=== PATIENT | male | born 1955 | race Caucasian/White ===

== ENCOUNTER 2019-04-15 19:27 | Emergency (ER) | payer SELFPAY ==
[~2019-04-15] VITALS: Ht 177.8 cm; Wt 81.7 kg
== END 2019-04-15 19:58 | disposition left against medical advice (07) ==
LOC: ER 19:27
DX: Z53.21 Procedure and treatment not carried out due to patient leaving prior to being seen by health care provider (principal)
CPT/HCPCS: 99283

== ENCOUNTER 2020-03-28 19:22 | Emergency (ER) | payer OTHER ==
[~2020-03-28] VITALS: Ht 177.8 cm; Wt 80.3 kg
[2020-03-28 20:26] LABS: BASOPHILS ABSOLUTE AUTO 0.07 K/mm3 (0.00-0.23); BASOPHILS PERCENT AUTO 1 % (0-2); EOSINOPHILS ABSOLUTE AUTO 0.27 K/mm3 (0.00-0.68); EOSINOPHILS PERCENT AUTO 2 % (0-6); Hemoglobin 14.5 g/dL (13.5-17.5); IMMATURE GRAN ABSOLUTE AUTO 0.05 K/mm3 (0.00-0.10); IMMATURE GRAN PERCENT AUTO 0 % (0-1); LYMPHOCYTES ABSOLUTE AUTO 2.52 K/mm3 (0.84-5.20); LYMPHOCYTES PERCENT AUTO 21 % (21-46); MONOCYTES ABSOLUTE AUTO 1.09 K/mm3 (0.16-1.47); MONOCYTES PERCENT AUTO 9 % (4-13); Mean Corpuscular HGB 28.7 pg (26.0-34.0); Mean Corpuscular HGB Conc 31.5 g/dL (31.5-36.5); Mean Corpuscular Volume 91 fL (80-100); Mean Platelet Volume 10.2 fL (9.1-12.4); NEUTROPHILS ABSOLUTE AUTO 8.19 K/mm3 (1.96-9.15); NEUTROPHILS PERCENT AUTO 67 % (41-73); Platelet Count 261 K/mm3 (150-400); RDW Standard Deviation 43.7 fL (35.1-46.3); Red Blood Cell Count 5.06 M/mm3 (4.30-5.90); White Blood Cell Count 12.19 K/mm3 (4.00-11.30)
[2020-03-28 20:45] LABS: Alanine Aminotransfer (ALT/SGP 20 U/L (12-78); Albumin, Blood 3.6 g/dL (3.4-5.0); Albumin/Globulin Ratio 1.1 (0.8-1.8); Alk Phos 61 U/L (50-136); Anion Gap 2 mmol/L (6-16); Aspartate Aminotrans (AST/SGOT 18 U/L (12-37); Bilirubin, Total 0.3 mg/dL (0.1-1.0); Blood Urea Nitrogen 13 mg/dL (8-24); Bun/Creatinine Ratio 16.7 (12.0-20.0); CO2, Blood 29 mmol/L (21-32); Calcium, Blood 8.6 mg/dL (8.5-10.1); Chloride, Blood 107 mmol/L (98-108); Creatinine, Blood 0.78 mg/dL (0.60-1.20); Globulin, Blood 3.2 g/dL (2.2-4.0); Glomerular Filtration Rate >60 (60-); Glucose, Blood 109 mg/dL (70-99); Potassium, Blood 3.8 mmol/L (3.5-5.5); Sodium, Blood 138 mmol/L (136-145); Total Protein, Blood 6.8 g/dL (6.4-8.2)
== END 2020-03-28 22:33 | disposition left against medical advice (07) ==
LOC: ER 19:22
PROVIDERS: Physician Assistant
DX: R41.0 Disorientation, unspecified (principal); R42 Dizziness and giddiness; Z53.21 Procedure and treatment not carried out due to patient leaving prior to being seen by health care provider
CPT/HCPCS: 36415; 80053; 85025; 99283

== ENCOUNTER 2020-03-30 10:42 | Emergency (ER) | payer OTHER ==
[~2020-03-30] VITALS: Ht 177.8 cm; Wt 79.4 kg
[2020-03-30] MEDS ORDERED: ASPI81CH PO (11:16)
[2020-03-30] MEDS ORDERED: Norco 7.5-3251 EACH PO (12:32)
== END 2020-03-30 12:48 | disposition home or self-care (01) ==
LOC: ER 10:42
DX: S46.211A Strain of muscle, fascia and tendon of other parts of biceps, right arm, initial encounter (principal); I10 Essential (primary) hypertension; I25.2 Old myocardial infarction; F17.200 Nicotine dependence, unspecified, uncomplicated; Z95.5 Presence of coronary angioplasty implant and graft; Z88.5 Allergy status to narcotic agent; Z79.82 Long term (current) use of aspirin
CPT/HCPCS: 76882; 99285-25; A9270

== ENCOUNTER 2021-03-18 12:27 | Emergency (ER) | payer OTHER ==
[~2021-03-18] VITALS: Ht 177.8 cm; Wt 81.7 kg
[~2021-03-18 12:27] MED LIST: ALBU90OI INH; ASPI81CH PO; Norco 7.5-3251 EACH PO; PRED20 PO
[2021-03-18 13:29] LABS: BASOPHILS ABSOLUTE AUTO 0.03 K/mm3 (0.00-0.23); BASOPHILS PERCENT AUTO 0 % (0-2); EOSINOPHILS ABSOLUTE AUTO 0.03 K/mm3 (0.00-0.68); EOSINOPHILS PERCENT AUTO 0 % (0-6); Hematocrit 47.8 % (37.0-53.0); IMMATURE GRAN ABSOLUTE AUTO 0.04 K/mm3 (0.00-0.10); IMMATURE GRAN PERCENT AUTO 1 % (0-1); LYMPHOCYTES ABSOLUTE AUTO 1.49 K/mm3 (0.84-5.20); LYMPHOCYTES PERCENT AUTO 18 % (21-46); MONOCYTES ABSOLUTE AUTO 1.62 K/mm3 (0.16-1.47); MONOCYTES PERCENT AUTO 19 % (4-13); Mean Corpuscular HGB 29.1 pg (26.0-34.0); Mean Corpuscular HGB Conc 33.5 g/dL (31.5-36.5); Mean Corpuscular Volume 87 fL (80-100); Mean Platelet Volume 10.2 fL (9.1-12.4); NEUTROPHILS ABSOLUTE AUTO 5.25 K/mm3 (1.96-9.15); NEUTROPHILS PERCENT AUTO 62 % (41-73); Platelet Count 207 K/mm3 (150-400); RDW Coefficient Variation 13.5 % (11.7-14.2); RDW Standard Deviation 43.2 fL (35.1-46.3); Red Blood Cell Count 5.49 M/mm3 (4.30-5.90); White Blood Cell Count 8.46 K/mm3 (4.00-11.30)
[2021-03-18 14:10] LABS: Alanine Aminotransfer (ALT/SGP 22 U/L (12-78); Albumin, Blood 3.1 g/dL (3.4-5.0); Albumin/Globulin Ratio 0.9 (0.8-1.8); Alk Phos 47 U/L (50-136); Anion Gap 8 mmol/L (6-16); Aspartate Aminotrans (AST/SGOT 27 U/L (12-37); Bilirubin, Total 0.3 mg/dL (0.1-1.0); Blood Urea Nitrogen 25 mg/dL (8-24); Bun/Creatinine Ratio 24.5 (12.0-20.0); CO2, Blood 24 mmol/L (21-32); Calcium, Blood 8.4 mg/dL (8.5-10.1); Chloride, Blood 102 mmol/L (98-108); Creatinine, Blood 1.02 mg/dL (0.60-1.20); Globulin, Blood 3.6 g/dL (2.2-4.0); Glomerular Filtration Rate >60 (60-); Glucose, Blood 93 mg/dL (70-99); Potassium, Blood 4.2 mmol/L (3.5-5.5); Sodium, Blood 134 mmol/L (136-145); Total Protein, Blood 6.7 g/dL (6.4-8.2); Troponin I <0.015 ng/mL (0.000-0.040)
[2021-03-18 14:31] LABS: Influenza B, PCR NEGATIVE (NEGATIVE); Resp Syncytial Virus, PCR NEGATIVE (NEGATIVE); SARS-Cov-2 (COVID-19) PCR, MMC NEGATIVE (NEGATIVE)
[2021-03-18 14:46] LABS: Influenza A, PCR POSITIVE (NEGATIVE)
== END 2021-03-18 15:08 | disposition home or self-care (01) ==
LOC: ER 12:27
PROVIDERS: Emergency Medicine
DX: J10.1 Influenza due to other identified influenza virus with other respiratory manifestations (principal); I10 Essential (primary) hypertension; I25.2 Old myocardial infarction; Z87.891 Personal history of nicotine dependence; Z20.822 Contact with and (suspected) exposure to COVID-19; Z88.5 Allergy status to narcotic agent; Z79.899 Other long term (current) drug therapy; Z79.82 Long term (current) use of aspirin; Z79.52 Long term (current) use of systemic steroids
CPT/HCPCS: 0241U; 80053; 83690; 84484; 85025; 93005; 93010; 99284-25; J7030

== ENCOUNTER 2023-02-21 09:27 | Emergency (ER) | payer OTHER ==
[~2023-02-21] VITALS: Ht 175.3 cm; Wt 77.1 kg
[~2023-02-21 09:27] MED LIST changes: +CYCL10 PO; +NAPR500 PO
[2023-02-21 09:47] VITALS: BP 141/90
== END 2023-02-21 10:18 | disposition home or self-care (01) ==
LOC: ER 09:27
DX: R04.0 Epistaxis (principal); Z88.5 Allergy status to narcotic agent; Z79.82 Long term (current) use of aspirin; I10 Essential (primary) hypertension; I25.2 Old myocardial infarction; J44.9 Chronic obstructive pulmonary disease, unspecified; F17.210 Nicotine dependence, cigarettes, uncomplicated
CPT/HCPCS: 99283

== ENCOUNTER 2024-12-26 22:06 | Emergency (ER) | payer MEDICARE, OTHER ==
[~2024-12-26] VITALS: Ht 177.8 cm; Wt 74.4 kg
[2024-12-26 22:29] LABS: BASOPHILS ABSOLUTE AUTO 0.08 K/mm3 (0.00-0.23); BASOPHILS PERCENT AUTO 1 % (0-2); EOSINOPHILS ABSOLUTE AUTO 0.30 K/mm3 (0.00-0.68); EOSINOPHILS PERCENT AUTO 3 % (0-6); Hematocrit 49.2 % (37.0-53.0); Hemoglobin 16.1 g/dL (13.5-17.5); IMMATURE GRAN ABSOLUTE AUTO 0.04 K/mm3 (0.00-0.10); IMMATURE GRAN PERCENT AUTO 0 % (0-1); LYMPHOCYTES ABSOLUTE AUTO 3.01 K/mm3 (0.84-5.20); LYMPHOCYTES PERCENT AUTO 28 % (21-46); MONOCYTES ABSOLUTE AUTO 1.02 K/mm3 (0.16-1.47); MONOCYTES PERCENT AUTO 9 % (4-13); Mean Corpuscular HGB Conc 32.7 g/dL (31.5-36.5); Mean Corpuscular Volume 90 fL (80-100); NEUTROPHILS ABSOLUTE AUTO 6.46 K/mm3 (1.96-9.15); NEUTROPHILS PERCENT AUTO 59 % (41-73); NRBC ABSOLUTE 0.00 K/mm3 (0.00-0.02); NRBC Auto 0.0 /100 WBC (0.0-0.2); Platelet Count 233 K/mm3 (150-400); RDW Coefficient Variation 13.4 % (11.7-14.2); RDW Standard Deviation 44.3 fL (35.1-46.3)
[2024-12-26 22:58] LABS: Alanine Aminotransfer (ALT/SGP 22 U/L (12-78); Albumin, Blood 3.7 g/dL (3.4-5.0); Albumin/Globulin Ratio 1.0 (0.8-1.8); Anion Gap 6 mmol/L (3-11); Aspartate Aminotrans (AST/SGOT 23 U/L (12-37); Bilirubin, Total <0.1 mg/dL (0.1-1.0); Blood Urea Nitrogen 19 mg/dL (8-24); CO2, Blood 28 mmol/L (21-32); Calcium, Blood 9.1 mg/dL (8.5-10.1); Chloride, Blood 104 mmol/L (98-108); Creatinine, Blood 0.76 mg/dL (0.60-1.20); Globulin, Blood 3.6 g/dL (2.2-4.0); Glucose, Blood 96 mg/dL (70-99); Potassium, Blood 5.1 mmol/L (3.5-5.5); Sodium, Blood 133 mmol/L (136-145); Total Protein, Blood 7.3 g/dL (6.4-8.2)
[2024-12-27] MEDS ORDERED: FentaNYL Citrate 50 MCG/ML 2 ML Injection IV ONE (00:05)
[2024-12-27] MEDS ORDERED: Ipratropium/Albuterol SulF 2.5-0.5MG/3 ML Amp INH ONE ×2 (01:35→23:55)
[2024-12-27 02:12] VITALS: BP 164/101
[2024-12-27] MEDS ORDERED: ALBU90OI INH (15:48)
[2024-12-27] MEDS ORDERED: CYCL10 PO (15:49)
[2024-12-27] MEDS ORDERED: THERA-D2000 UNIT PO (15:49)
[2024-12-27] MEDS ORDERED: Flonase 0.05% N16 GM (15:50)
[2024-12-27] MEDS ORDERED: ALLEGRA ALLERG180 MG PO (15:50)
[2024-12-27] MEDS ORDERED: FOLI1 PO (15:52)
[2024-12-27] MEDS ORDERED: FLUTICASONE-SA1 EAC1 INH (15:52)
[2024-12-27] MEDS ORDERED: NITR.4SL SL (15:53)
[2024-12-27] MEDS ORDERED: LIDOCAINE1 EACH TOP (15:53)
[2024-12-27] MEDS ORDERED: PSEUDOEPHEDRINE30 M1 PO (15:54)
[2024-12-27] MEDS ORDERED: TIOTROPIUM BRO18 MCG INH (15:55)
== END 2024-12-27 04:00 | disposition left against medical advice (07) ==
LOC: ER 22:06
PROVIDERS: Emergency Medicine
DX: I74.19 Embolism and thrombosis of other parts of aorta (principal); I71.22 Aneurysm of the aortic arch, without rupture; I25.10 Atherosclerotic heart disease of native coronary artery without angina pectoris; I10 Essential (primary) hypertension; N28.1 Cyst of kidney, acquired; R79.89 Other specified abnormal findings of blood chemistry; I25.2 Old myocardial infarction; J44.9 Chronic obstructive pulmonary disease, unspecified; F17.210 Nicotine dependence, cigarettes, uncomplicated; Z53.29 Procedure and treatment not carried out because of patient's decision for other reasons; Z91.148 Patient's other noncompliance with medication regimen for other reason; Z88.5 Allergy status to narcotic agent; Z79.82 Long term (current) use of aspirin; Z79.899 Other long term (current) drug therapy; Z95.5 Presence of coronary angioplasty implant and graft
CPT/HCPCS: 71046; 71275; 80053; 84484; 85025; 96374; 99285-25; A9270; J3010; Q9967

== ENCOUNTER 2024-12-27 06:22 | Inpatient (IN) | payer OTHER, MEDICARE ==
[~2024-12-27] VITALS: Ht 177.8 cm; Wt 73.2 kg
[2024-12-27] MEDS ORDERED: HydrALAZINE HCl 20 MG / ML 1ML Vial IV ONE (06:55)
[2024-12-27 08:26] LABS: Prothrombin Time Results 11.4 Sec (9.7-11.5)
[2024-12-27 08:30] LABS: BASOPHILS ABSOLUTE AUTO 0.06 K/mm3 (0.00-0.23); BASOPHILS PERCENT AUTO 1 % (0-2); EOSINOPHILS ABSOLUTE AUTO 0.11 K/mm3 (0.00-0.68); EOSINOPHILS PERCENT AUTO 1 % (0-6); Hematocrit 47.3 % (37.0-53.0); Hemoglobin 15.9 g/dL (13.5-17.5); IMMATURE GRAN ABSOLUTE AUTO 0.04 K/mm3 (0.00-0.10); IMMATURE GRAN PERCENT AUTO 0 % (0-1); LYMPHOCYTES ABSOLUTE AUTO 1.62 K/mm3 (0.84-5.20); LYMPHOCYTES PERCENT AUTO 15 % (21-46); MONOCYTES ABSOLUTE AUTO 0.78 K/mm3 (0.16-1.47); MONOCYTES PERCENT AUTO 7 % (4-13); Mean Corpuscular HGB Conc 33.6 g/dL (31.5-36.5); Mean Corpuscular Volume 87 fL (80-100); NEUTROPHILS ABSOLUTE AUTO 7.91 K/mm3 (1.96-9.15); NEUTROPHILS PERCENT AUTO 75 % (41-73); NRBC ABSOLUTE 0.00 K/mm3 (0.00-0.02); NRBC Auto 0.0 /100 WBC (0.0-0.2); Platelet Count 214 K/mm3 (150-400); RDW Coefficient Variation 13.4 % (11.7-14.2); RDW Standard Deviation 43.3 fL (35.1-46.3)
[2024-12-27] MEDS ORDERED: Polyethylene Glycol 3350 17 gm PO PRN (08:35)
[2024-12-27] MEDS ORDERED: Ondansetron HCl 2 MG / ML 2ML Vial IV PRN (08:35)
[2024-12-27] MEDS ORDERED: Dose Adjust by Pharmacy XX STA (08:36)
[2024-12-27] MEDS ORDERED: Formoterol/Mometasone MDI 5/200 mcg 13 GM INH SCH (08:40)
[2024-12-27] MEDS ORDERED: Heparin Sodium,Porcine/0.5 NS 500 ML IV SCH (08:40)
[2024-12-27] MEDS ORDERED: FLU VACC TS2025(65UP)/MF59C/PF 45 MCG/0.5 ML SYRINGE IM SCH (08:40)
[2024-12-27] MEDS ORDERED: Heparin Sodium 5000 Units/ML 1ML MDV IV ONE (08:40)
[2024-12-27] MEDS ORDERED: Albuterol 2.5 MG/3 ML VIAL INH PRN (10:25)
[2024-12-27] MEDS ORDERED: Heparin Sodium 1000 Units/ML 10ML MDV ONE (10:39)
[2024-12-27] MEDS ORDERED: NS 1,000 ML IV ONE ×2 (10:39→10:40)
[2024-12-27] MEDS ORDERED: NS 250 ML IV ONE (10:39)
[2024-12-27] MEDS ORDERED: Verapamil HCL 2.5 MG/ML 2ML Injection ONE (10:39)
[2024-12-27] MEDS ORDERED: Midazolam HCl 1MG / ML 2ML Vial ONE (10:40)
[2024-12-27] MEDS ORDERED: FentaNYL Citrate 50 MCG/ML 2 ML Injection ONE (10:40)
[2024-12-27] MEDS ORDERED: Nitroglycerin 2 MG/20 ML BTL ONE (10:40)
[2024-12-27] MEDS ORDERED: Albuterol HFA200 ACT/6.7 GM INH INH PRN (10:45)
[2024-12-27] MEDS ORDERED: Albuterol HFA200 ACT/6.7 GM INH ONE (10:46)
[2024-12-27 11:03] VITALS: BP 179/99
[2024-12-27] MEDS ORDERED: NS 500 ML IV ONE (12:10)
[2024-12-27] MEDS ORDERED: ALBU90OI INH (15:48)
[2024-12-27] MEDS ORDERED: CYCL10 PO (15:49)
[2024-12-27] MEDS ORDERED: THERA-D2000 UNIT PO (15:49)
[2024-12-27] MEDS ORDERED: ALLEGRA ALLERG180 MG PO (15:50)
[2024-12-27] MEDS ORDERED: Flonase 0.05% N16 GM (15:50)
[2024-12-27] MEDS ORDERED: FLUTICASONE-SA1 EAC1 INH (15:52)
[2024-12-27] MEDS ORDERED: FOLI1 PO (15:52)
[2024-12-27] MEDS ORDERED: NITR.4SL SL (15:53)
[2024-12-27] MEDS ORDERED: LIDOCAINE1 EACH TOP (15:53)
[2024-12-27] MEDS ORDERED: PSEUDOEPHEDRINE30 M1 PO (15:54)
[2024-12-27] MEDS ORDERED: TIOTROPIUM BRO18 MCG INH (15:55)
[2024-12-27 16:29] VITALS: BP 179/99
[2024-12-27 16:39] VITALS: BP 155/96
--- NOTE | 2024-12-27 17:26 | NUR ---
SHIFT SUMMARY PATIENT AOX4 ABLE TO MAKE NEEDS KNOWN. HE DENIES CP OR SOB ON HEP GTT. HE IS INDEPENDENT TO THE RESTROOM. HE IS TOLERATING HIS FOOD. HIS VITALS ARE STABLE WITH HIS BLOOD PRESSURE ELEVATED. HE WENT TO [facility] AND HAD TR BAND PLACED ON RIGHT RADIAL. ALL AIR WAS REMOVED AND TEGODERM PLACED. NO PAIN NO SWELLING NO HEMATOMA, NO BRUISING. HIS HEP GTT WAS RESTARTED AFTER THE TR BAND WAS REMOVED. REPORT WAS GIVEN TO JOHN AT [facility] [phone]. TRANPORT PICKED UP THE PATIENT AT [id number].
[2024-12-27] MEDS ORDERED: Docusate Sodium/Senna 1 Tab PO SCH (21:00)
== END 2024-12-27 16:52 | disposition short-term general hospital (02) | DRG 281 ==
LOC: ER 06:22 → PCU 08:29
PROVIDERS: Emergency Medicine; ADMIT Internal Medicine
PROC: 4A023N7 Measurement of Cardiac Sampling and Pressure, Left Heart, Percutaneous Approach (ICD-10-PCS; principal; 2024-12-27)
PROC: B2111ZZ Fluoroscopy of Multiple Coronary Arteries using Low Osmolar Contrast (ICD-10-PCS; 2024-12-27)
PROC: 4A033BC Measurement of Arterial Pressure, Coronary, Percutaneous Approach (ICD-10-PCS; 2024-12-27)
DX: I21.4 Non-ST elevation (NSTEMI) myocardial infarction (principal); I74.19 Embolism and thrombosis of other parts of aorta; T82.855A Stenosis of coronary artery stent, initial encounter; I25.10 Atherosclerotic heart disease of native coronary artery without angina pectoris; F43.12 Post-traumatic stress disorder, chronic; J44.9 Chronic obstructive pulmonary disease, unspecified; I70.219 Atherosclerosis of native arteries of extremities with intermittent claudication, unspecified extremity; F17.210 Nicotine dependence, cigarettes, uncomplicated; N28.89 Other specified disorders of kidney and ureter; I16.0 Hypertensive urgency; I71.40 Abdominal aortic aneurysm, without rupture, unspecified; I10 Essential (primary) hypertension; Y71.2 Prosthetic and other implants, materials and accessory cardiovascular devices associated with adverse incidents; Z79.82 Long term (current) use of aspirin; I25.2 Old myocardial infarction; Z88.5 Allergy status to narcotic agent; I71.22 Aneurysm of the aortic arch, without rupture; N28.1 Cyst of kidney, acquired; R79.89 Other specified abnormal findings of blood chemistry; Z91.148 Patient's other noncompliance with medication regimen for other reason; Z79.899 Other long term (current) drug therapy; Z95.5 Presence of coronary angioplasty implant and graft
CPT/HCPCS: 71046; 71275; 76937; 80053; 84484; 85025; 85347; 85610; 85730; 93005; 93010; 93458; 93571; 93572; 94640; 94664; 96374; 96374-59; 99152; 99153; 99285-25; A9270; C1769; C1887; C1894; J0360; J1644; J2250; J2405; J3010; J7030; J7040; J7050; Q9967

== ENCOUNTER 2025-01-02 21:05 | Emergency (ER) | payer OTHER, MEDICARE ==
[~2025-01-02] VITALS: Ht 177.8 cm; Wt 74.4 kg
[~2025-01-02 21:05] MED LIST changes: +ALLEGRA ALLERG180 MG PO; +FLUTICASONE-SA1 EAC1 INH; +FOLI1 PO; +Flonase 0.05% N16 GM; +LIDOCAINE1 EACH TOP; +NITR.4SL SL; +PSEUDOEPHEDRINE30 M1 PO; +THERA-D2000 UNIT PO; +TIOTROPIUM BRO18 MCG INH
[2025-01-02] MEDS ORDERED: Ipratropium/Albuterol SulF 2.5-0.5MG/3 ML Amp INH ONE (21:30)
[2025-01-02 21:49] LABS: BASOPHILS ABSOLUTE AUTO 0.06 K/mm3 (0.00-0.23); BASOPHILS PERCENT AUTO 1 % (0-2); EOSINOPHILS ABSOLUTE AUTO 0.16 K/mm3 (0.00-0.68); EOSINOPHILS PERCENT AUTO 2 % (0-6); Hematocrit 36.5 % (37.0-53.0); Hemoglobin 12.0 g/dL (13.5-17.5); IMMATURE GRAN ABSOLUTE AUTO 0.05 K/mm3 (0.00-0.10); IMMATURE GRAN PERCENT AUTO 1 % (0-1); LYMPHOCYTES ABSOLUTE AUTO 1.62 K/mm3 (0.84-5.20); LYMPHOCYTES PERCENT AUTO 17 % (21-46); MONOCYTES ABSOLUTE AUTO 1.47 K/mm3 (0.16-1.47); MONOCYTES PERCENT AUTO 15 % (4-13); Mean Corpuscular HGB Conc 32.9 g/dL (31.5-36.5); Mean Corpuscular Volume 91 fL (80-100); NEUTROPHILS ABSOLUTE AUTO 6.19 K/mm3 (1.96-9.15); NEUTROPHILS PERCENT AUTO 65 % (41-73); NRBC ABSOLUTE 0.00 K/mm3 (0.00-0.02); NRBC Auto 0.0 /100 WBC (0.0-0.2); Platelet Count 260 K/mm3 (150-400); RDW Coefficient Variation 14.0 % (11.7-14.2); RDW Standard Deviation 46.6 fL (35.1-46.3)
[2025-01-02 22:08] LABS: Alanine Aminotransfer (ALT/SGP 25.0 U/L (12-78); Albumin, Blood 3.2 g/dL (3.4-5.0); Albumin/Globulin Ratio 1.0 (0.8-1.8); Anion Gap 6.0 mmol/L (3-11); Aspartate Aminotrans (AST/SGOT 37.0 U/L (12-37); Bilirubin, Total 0.4 mg/dL (0.1-1.0); Blood Urea Nitrogen 24.0 mg/dL (8-24); CO2, Blood 29.0 mmol/L (21-32); Calcium, Blood 8.5 mg/dL (8.5-10.1); Chloride, Blood 108.0 mmol/L (98-108); Creatinine, Blood 0.76 mg/dL (0.60-1.20); Globulin, Blood 3.3 g/dL (2.2-4.0); Glucose, Blood 97.0 mg/dL (70-99); Potassium, Blood 5.1 mmol/L (3.5-5.5); Sodium, Blood 138.0 mmol/L (136-145); Total Protein, Blood 6.5 g/dL (6.4-8.2)
[2025-01-02 22:39] LABS: pH Blood Venous 7.39 (7.34-7.37)
[2025-01-02 23:00] VITALS: BP 170/87
[2025-01-02 23:07] LABS: Influenza A, PCR NEGATIVE (NEGATIVE); Influenza B, PCR NEGATIVE (NEGATIVE); Resp Syncytial Virus, PCR NEGATIVE (NEGATIVE); SARS-Cov-2 (COVID-19) PCR, MMC NEGATIVE (NEGATIVE)
== END 2025-01-03 00:05 | disposition left against medical advice (07) ==
LOC: ER 21:05
PROVIDERS: Emergency Medicine; Student in an Organized Health Care Education/Training Program
DX: R06.02 Shortness of breath (principal); Z53.29 Procedure and treatment not carried out because of patient's decision for other reasons; I10 Essential (primary) hypertension; I25.10 Atherosclerotic heart disease of native coronary artery without angina pectoris; I25.2 Old myocardial infarction; J44.89 Other specified chronic obstructive pulmonary disease; F17.210 Nicotine dependence, cigarettes, uncomplicated; Z98.890 Other specified postprocedural states; Z88.5 Allergy status to narcotic agent; Z79.82 Long term (current) use of aspirin; Z79.899 Other long term (current) drug therapy
CPT/HCPCS: 71046; 71260; 80053; 82803; 84484; 85025; 87637; 96374-59; 99285-25; J2919; Q9967